=== PATIENT | male | born 1940 | race Caucasian/White ===

== ENCOUNTER 2021-12-26 15:22 | Inpatient (IN) | payer OTHER ==
[~2021-12-26] VITALS: Ht 172.7 cm; Wt 99.3 kg
[2021-12-26 16:03] LABS: BASOPHILS % 0.8 % (0.0-2.0); HEMATOCRIT. 40.7 % (42.0-52.0); HEMOGLOBIN. 13.6 g/dL (14.0-18.0); LYMPHOCYTES % 13.8 % (20.0-50.0); MEAN CORPUSCULAR HEMOGLOBIN 30.5 pg (28.0-32.0); MEAN CORPUSCULAR VOLUME 91.3 fL (80.0-94.0); MEAN PLATELET VOLUME 9.4 fl (7.4-10.4); MONOCYTES % 7.4 % (2.0-8.0); PLATELET 148 x1000/uL (130-400); RED BLOOD CELL COUNT 4.46 mill/uL (4.7-6.1); RED CELL DISTRIBUTION WIDTH 13.8 % (11.6-14.6)
[2021-12-26 16:14] LABS: CHLORIDE 107 mEq/L (98-107)
[2021-12-26 16:29] LABS: INR 1.2; PROTHROMBIN TIME 12.4 sec (9.6-11.0)
[2021-12-26 17:47] LABS: CLARITY URINE CLEAR (CLEAR); COLOR URINE YELLOW (YELLOW); KETONES URINE NEGATIVE (NEGATIVE); LEUKOCYTE ESTERASE URINE NEGATIVE (NEGATIVE); NITRITE URINE NEGATIVE (NEGATIVE); OCCULT BLOOD URINE NEGATIVE (NEGATIVE); PROTEIN URINE NEGATIVE (NEGATIVE); SPECIFIC GRAVITY URINE 1.007 (1.005-1.030)
[2021-12-26 22:00] VITALS: BP 147/71
[2021-12-26 22:30] VITALS: BP 147/43
[2021-12-26 23:00] VITALS: BP 174/56
[2021-12-26 23:30] VITALS: BP 141/61
[2021-12-27] VITALS (63 sets, daily range): BP systolic 131–213; BP diastolic 54–162
[2021-12-27] MEDS ORDERED: PNEUMOCOCCAL 23-VAL P-SAC VAC 0.5 ML IM ONE (05:30)
[2021-12-27] MEDS ORDERED: AMLO10TA80 PO (08:45)
[2021-12-27] MEDS ORDERED: ATROPINE SULFATE 1MG/ML VIAL IV PRN (08:45)
[2021-12-27] MEDS ORDERED: HYDR25TA PO (08:45)
[2021-12-27] MEDS ORDERED: LOSA100T32 PO (08:45)
[2021-12-27] MEDS: DEXT 5%/0.45% NACL 1000ML 1,000 ML IV SCH ×2 (09:25→21:32)
[2021-12-27] MEDS: HYDRALAZINE 20MG/ML VIAL IV PRN ×3 (09:55→21:31)
[2021-12-27 10:19] LABS: BASOPHILS % 1.1 % (0.0-2.0); EOSINOPHILS % 5.2 % (0.0-5.0); HEMATOCRIT. 40.5 % (42.0-52.0); HEMOGLOBIN. 13.5 g/dL (14.0-18.0); LYMPHOCYTES % 16.8 % (20.0-50.0); MEAN CORPUSCULAR HEMOGLOBIN 30.5 pg (28.0-32.0); MEAN CORPUSCULAR VOLUME 91.8 fL (80.0-94.0); MEAN PLATELET VOLUME 9.4 fl (7.4-10.4); MONOCYTES % 7.9 % (2.0-8.0); PLATELET 132 x1000/uL (130-400); RED BLOOD CELL COUNT 4.41 mill/uL (4.7-6.1); RED CELL DISTRIBUTION WIDTH 13.8 % (11.6-14.6)
[2021-12-27 10:33] LABS: INR 1.2
[2021-12-27 10:38] LABS: CHLORIDE 108 mEq/L (98-107)
[2021-12-27 10:52] LABS: CREATINE KINASE 112 IU/L (39-308)
[2021-12-27] MEDS: HYDRALAZINE HCL 25MG TABLET PO SCH ×2 (13:40→21:31)
[2021-12-27] MEDS ORDERED: CEFAZOLIN 1000MG PREMIX 100 ML IV ONE (14:23)
[2021-12-27] MEDS ORDERED: LIDOCAINE HCL/PF 2% 20MG/ML 5 ML/VIAL ONE (14:24)
[2021-12-27] MEDS ORDERED: LIDOCAINE HCL/PF 1% 10 MG/ML 5ML VIAL ONE ×2 (14:24→15:12)
[2021-12-27] MEDS ORDERED: GENTAMICIN SULF 40MG/ML 2ML VIAL ONE (14:24)
[2021-12-27] MEDS ORDERED: IODIXANOL 320MG/ML 100 ML BOTTLE IV ONE (14:29)
[2021-12-27] MEDS ORDERED: GENTAMICIN/NS IRRIGATION 500 ML IR ONE (14:30)
[2021-12-27] MEDS ORDERED: DIPHENHYDRAMINE 50MG/ML VIAL ONE (14:57)
[2021-12-27] MEDS ORDERED: FENTANYL CITRATE/PF 50MCG/ML 2ML VIAL ONE (15:00)
[2021-12-27] MEDS ORDERED: MIDAZOLAM HCL 2 MG/2 ML VIAL ONE (15:31)
[2021-12-28] VITALS (28 sets, daily range): BP systolic 110–160; BP diastolic 59–82
[2021-12-28] MEDS ORDERED: GUAIFENESIN-DM 200MG-20MG/10ML UDC PO PRN (04:15)
[2021-12-28] MEDS ORDERED: FUROSEMIDE 40MG/4ML VIAL IVP NR (04:15)
[2021-12-28] MEDS: CEFAZOLIN 1000MG PREMIX 50 ML IV SCH ×2 (04:27→14:00)
[2021-12-28] MEDS: HYDRALAZINE HCL 25MG TABLET PO SCH ×2 (05:05→14:00)
[2021-12-28 05:36] LABS: BASOPHILS % 0.8 % (0.0-2.0); EOSINOPHILS % 0.6 % (0.0-5.0); HEMATOCRIT. 41.9 % (42.0-52.0); HEMOGLOBIN. 14.3 g/dL (14.0-18.0); LYMPHOCYTES % 9.3 % (20.0-50.0); MEAN CORPUSCULAR HEMOGLOBIN 30.9 pg (28.0-32.0); MEAN CORPUSCULAR VOLUME 90.8 fL (80.0-94.0); MONOCYTES % 5.2 % (2.0-8.0); NEUTROPHILS % 84.1 % (40.0-76.0); PLATELET 144 x1000/uL (130-400); RED BLOOD CELL COUNT 4.61 mill/uL (4.7-6.1); RED CELL DISTRIBUTION WIDTH 13.6 % (11.6-14.6)
[2021-12-28 05:53] LABS: CHLORIDE 105 mEq/L (98-107)
[2021-12-28] MEDS ORDERED: CEFAZOLIN SODIUM 1000MG/VIAL IV SCH (06:00)
[2021-12-28] MEDS ORDERED: HYDR-4134 MT (14:06)
[2021-12-28] MEDS ORDERED: CEPH250C2 MT (14:06)
[2021-12-28] MEDS ORDERED: TRAM50TA94 MT (14:06)
== END 2021-12-28 17:45 | disposition home or self-care (01) | DRG 244 ==
LOC: ER 15:22 → MICUNO 17:58 → EDBEDREQTM 18:02 → EDBEDREQ 18:02 → ENRESERV 21:29
PROVIDERS: ADMIT Internal Medicine; ATTEND Internal Medicine
PROC: 0JH606Z Insertion of Pacemaker, Dual Chamber into Chest Subcutaneous Tissue and Fascia, Open Approach (ICD-10-PCS; principal; 2021-12-27)
PROC: 02H63JZ Insertion of Pacemaker Lead into Right Atrium, Percutaneous Approach (ICD-10-PCS; 2021-12-27)
PROC: 02HK3JZ Insertion of Pacemaker Lead into Right Ventricle, Percutaneous Approach (ICD-10-PCS; 2021-12-27)
DX: I44.2 Atrioventricular block, complete (principal); I45.2 Bifascicular block; Z20.822 Contact with and (suspected) exposure to COVID-19; I10 Essential (primary) hypertension; E66.9 Obesity, unspecified; Z68.33 Body mass index [BMI] 33.0-33.9, adult; Z79.899 Other long term (current) drug therapy
CPT/HCPCS: 33208; 36415; 71045; 75820; 80048; 80053; 81003; 82550; 82553; 83880; 84439; 84443; 84484; 85025; 87426; 90732; 93005; 93306; 99291; C1785; C1893; C1898; J0360; J0690; J1200; J1580; J1940; J2250; J3010; J3490; Q9967